=== PATIENT | female | born 1965 | race Caucasian/White ===

== ENCOUNTER 2023-05-16 19:00 | Observation (INO) ==
[2023-05-16 19:47] LABS: Basophils # (auto) 0.04 K/uL (0.00-0.20); Basophils % (auto) 0.7 %; Eosinophils # (auto) 0.21 K/uL (0.00-0.50); Eosinophils % (auto) 3.5 %; Hematocrit (blood only) 41.3 % (37.0-47.0); Hemoglobin 13.8 g/dl (12.0-16.0); Immature Granulocytes # (auto) 0.01 K/uL (0.01-0.20); Immature Granulocytes % (auto) 0.2 %; Lymphocytes # (auto) 2.75 K/uL (1.20-3.40); Lymphocytes % (auto) 46.1 %; Mean Corpuscular Hemoglobin 30.8 pg (25.0-34.0); Mean Corpuscular Hgb Conc 33.4 g/dL (32.0-36.0); Mean Corpuscular Volume 92.2 fL (80.0-100.0); Mean Platelet Volume 9.8 fL (9.4-12.4); Monocytes # (auto) 0.57 K/uL (0.11-0.59); Monocytes % (auto) 9.5 %; Neutrophils # (auto) 2.39 K/uL (1.40-6.50); Platelet Count 235 K/uL (130-400); RDW Coefficient of Variation 12.9 % (11.5-14.5); RDW Standard Deviation 43.3 fL (36.4-46.3); Red Blood Count 4.48 M/uL (4.20-5.40); White Blood Count 5.97 K/ul (4.8-10.8)
[2023-05-16 19:55] LABS: Alanine Aminotransferase 13 U/L (7-52); Albumin Globulin Ratio 1.5 (0.9-2); Albumin Level 4.4 gm/dl (3.4-5.0); Alkaline Phosphatase 79 U/L (34-104); Anion Gap 3 (3-11); Aspartate Aminotransferase 17 U/L (13-39); BUN Creatinine Ratio 14.6 (10-20); Bilirubin,Total 0.3 mg/dl (0.2-1.0); Blood Urea Nitrogen 13 mg/dl (6-23); Calcium 9.7 mg/dl (8.6-10.3); Carbon Dioxide 30 mmol/L (21-32); Chloride 104 mmol/L (98-107); Est GFR (African American) 84.6 ml/min; Glucose 101 mg/dl (70-99(Fasting)); Lipase 35 U/L (11-82); Potassium 4.3 mmol/L (3.5-5.1); Sodium 137 mmol/L (136-145); Total Protein 7.4 gm/dl (6.0-8.3)
[2023-05-16 20:01] LABS: Troponin I High Sensitivity < 2.3 pg/ml (0-14)
[2023-05-16] MEDS ORDERED: clonazePAM 0.5 MG TAB PO STA (22:42)
[2023-05-16] MEDS ORDERED: FAMOTIDINE 20MG IV PUSH 20 MG/5 ML SYR IV STA (22:42)
[2023-05-16 23:00] LABS: Creatine Kinase 69 U/L (26-192)
[2023-05-16] MEDS ORDERED: OPTIRAY 320 500ml IV ONE (23:28)
[2023-05-16 23:34] LABS: Lyme Ab IgG w/WB Rflx Negative (Negative); Lyme Ab IgM w/WB Rflx Negative (Negative)
[2023-05-16 23:45] LABS: Thyroid Stimulating Hormone 3.667 uIu/ml (0.300-4.500)
--- NOTE | 2023-05-17 | CT Scan Report ---
Exam(s): CTA CHEST IV Amt: 109 ML OPTIRAY 320 EXAM: CT Angiography Chest With Intravenous Contrast CLINICAL HISTORY: Reason for exam: PE. TECHNIQUE: Axial computed tomographic angiography images of the chest with intravenous contrast. CTDI is 13.04 mGy and DLP is 388.56 mGy-cm. Automated exposure control was utilized for the study. A dose lowering technique was utilized adhering to the principles of ALARA. MIP reconstructed images were created and reviewed. COMPARISON: No relevant prior studies available. FINDINGS: Pulmonary arteries: Unremarkable. No pulmonary embolism. Aorta: No acute findings. No thoracic aortic aneurysm. Lungs: Unremarkable. No mass. No consolidation. Pleural space: Unremarkable. No significant effusion. No pneumothorax. Heart: Unremarkable. No cardiomegaly. No significant pericardial effusion. No evidence of RV dysfunction. Bones/joints: No acute fracture. No dislocation. Soft tissues: Unremarkable. Lymph nodes: Unremarkable. No enlarged lymph nodes. IMPRESSION: Normal chest CTA. No pulmonary embolism. Electronically signed by: Rodriguez Gonzalez MD 05/16/23 23:59 PM
--- NOTE | 2023-05-17 00:01 | CT Scan Report ---
Exam(s): CT ABDOMEN + PELVIS With Contrast IV Amt: 109 ML OPTIRAY 320 EXAM: CT Abdomen and Pelvis With Intravenous Contrast CLINICAL HISTORY: Reason for exam: mid abd pain. TECHNIQUE: Axial computed tomography images of the abdomen and pelvis with intravenous contrast. CTDI is 13.28 mGy and DLP is 641.5 mGy-cm. Automated exposure control was utilized for the study. A dose lowering technique was utilized adhering to the principles of ALARA. CONTRAST: Patient received 109 ML OPTIRAY 320 of IV contrast COMPARISON: No relevant prior studies available. FINDINGS: Lung bases: Unremarkable. No mass. No consolidation. ABDOMEN: Liver: Unremarkable. No mass. Gallbladder and bile ducts: Unremarkable. No calcified stones. No ductal dilation. Pancreas: Unremarkable. No mass. No ductal dilation. Spleen: Unremarkable. No splenomegaly. Adrenals: Unremarkable. No mass. Kidneys and ureters: Unremarkable. No solid mass. No hydronephrosis. Stomach and bowel: Unremarkable. No acute diverticulitis. No small bowel obstruction. No free intraperitoneal air. PELVIS: Appendix: Normal appendix. Bladder: Wall thickening of the urinary bladder, correlate for mild UTI. Reproductive: Unremarkable as visualized. ABDOMEN and PELVIS: Intraperitoneal space: Unremarkable. No free air. No significant fluid collection. Bones/joints: No acute fracture. No dislocation. Soft tissues: Unremarkable. Vasculature: Unremarkable. No abdominal aortic aneurysm. Lymph nodes: Unremarkable. No enlarged lymph nodes. IMPRESSION: 1. No acute diverticulitis. No small bowel obstruction. No free intraperitoneal air. 2. Normal appendix. 3. Wall thickening of the urinary bladder, correlate for mild UTI. Electronically signed by: Rodriguez Gonzalez MD 05/17/23 00:00 AM
[2023-05-17] MEDS ORDERED: SODIUM CHLORIDE 0.9% 1,000 ML IV ONE (00:19)
[2023-05-17 00:44] LABS: Partial Thromboplastin Time 26.8 Seconds (21.0-31.0)
[2023-05-17 00:50] LABS: Appearance Urine Clear (Clear); Bacteria Urine Automated 1+ (Negative); Bilirubin Urine Negative (Negative); Blood Urine Negative (Negative); Color Urine Yellow; Epithelial Cell Urine Auto 0-5 /lpf (0-5); Glucose Urine UA Negative (Negative); Ketones Urine Negative (Negative); Leukocyte Esterase Urine 2+ (Negative); Nitrite Urine Negative (Negative); Protein Urine Negative (Negative); RBC Urine Automated 0-4 /hpf (0-4); Specific Gravity Urine > 1.045 (1.000-1.030); Urobilinogen Urine Negative (Negative); WBC Urine Automated >30 /hpf (0-5); pH Urine 7.5 (4.5-7.5)
[2023-05-17 01:27] LABS: Magnesium 2.3 mg/dl (1.7-2.4)
[2023-05-17 01:34] LABS: Troponin I High Sensitivity < 2.3 pg/ml (0-14)
--- NOTE | 2023-05-17 03:48 | Emergency Department Note ---
History of Present Illness General Chief complaint: Chest Pain Stated complaint: CHEST PAIN, INDEGESTION Time Seen by Provider: 05/16/23 22:29 History of Present Illness Maximum Pain Intensity: 7 This 57-year-old female presents the ER complaining of intermittent chest pain and epigastric discomfort that is steadily getting worse. Patient saw the family doctor for this already and has a outpatient cardiology appointment next month. Patient states she got more concerned and came in. Patient denies fever, chills, cough, congestion, leg pain or swelling, prior heart disease or blood clots. She states she is healthy with no real active medical problems. Patient states on her walk the other day she began to feel unwell and was concerned and had the return without completing her entire walk. 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 CYCLE" Hx of seasonal allergies CHRONIC CONGESTION; HAS BEEN GETTING INJECTIONS FOR 3 YEARS THRU [facility] Nausea after anesthesia Slow to wake up after anesthesia Surgical History Hx of tubal ligation Hx of wisdom tooth extraction Social History Smoking Status: Never smoker Second Hand Exposure: Yes (HX GROWING UP); Do You Dip or Chew Tobacco: No; Hx Alcohol Use: Yes Hx Substance Use: No Preferred Language: Qatari Communication Ability: Effective Operations Research Manager Required: No Beliefs That Will Affect Care: None Current Living Situation: Spouse Feels Safe at Home: Yes Assistive Devices: None Review of Systems A total of 10 systems reviewed and were otherwise negative Physical Exam Vital Signs Vital Signs - 24 hr 05/16/23 19:09 05/16/23 22:13 05/16/23 22:13 Temperature 36.8 C Temperature Source Temporal Artery Scan Pulse Rate 83 Pulse Rate [Right Finger] 70 Respiratory Rate 18 14 Respiratory Effort / Characteristics Non-Labored Non-Labored Spontaneous Respiratory Depth Normal Normal Respiratory Pattern Blood Pressure 132/88 Blood Pressure [Right Arm] 103/72 Blood Pressure Mean 102 Blood Pressure Mean [Right Arm] 82 Blood Pressure Position [Right Arm] Pulse Oximetry 100 97 97 Oxygen Delivery Method Room Air Room Air Room Air Sepsis Recent Fever Within 48 Hours No Sepsis New/Unexplained Change in Mental Status No Sepsis Action Taken by Nursing No Action Required 05/16/23 22:13 05/16/23 22:22 05/17/23 00:18 Temperature Temperature Source Pulse Rate 70 66 Pulse Rate [Right Finger] 75 Respiratory Rate 14 16 Respiratory Effort / Characteristics Non-Labored Spontaneous Respiratory Depth Normal Respiratory Pattern Blood Pressure Blood Pressure [Right Arm] 110/72 Blood Pressure Mean Blood Pressure Mean [Right Arm] 84 Blood Pressure Position [Right Arm] Pulse Oximetry 97 98 Oxygen Delivery Method Room Air Room Air Sepsis Recent Fever Within 48 Hours Sepsis New/Unexplained Change in Mental Status Sepsis Action Taken by Nursing 05/17/23 02:00 05/17/23 02:13 05/17/23 03:05 Temperature Temperature Source Pulse Rate 60 Pulse Rate [Right Finger] 61 61 Respiratory Rate 12 16 Respiratory Effort / Characteristics Non-Labored Spontaneous Respiratory Depth Normal Respiratory Pattern Regular Blood Pressure Blood Pressure [Right Arm] 85/54 L 99/83 L Blood Pressure Mean Blood Pressure Mean [Right Arm] 64 88 Blood Pressure Position [Right Arm] Lying Pulse Oximetry 96 95 Oxygen Delivery Method Room Air Room Air Sepsis Recent Fever Within 48 Hours Sepsis New/Unexplained Change in Mental Status Sepsis Action Taken by Nursing VITALS: Vitals are noted on the nurse's note and reviewed by myself. Vital signs stable. GENERAL: Pleasant patient with present, in no acute distress, non diaphoretic, well-developed well-nourished. SKIN: The skin was without rashes, erythema, edema, or bruising. There is no tenting of the skin. Capillary reflex less than 2 seconds. HEAD: Normocephalic atraumatic. EARS: External auditory canals clear, EYES: Pupils equal round and reactive to light and accommodation. Conjunctivae without injection, sclerae without icterus. Extraocular movements intact. NOSE: Patent, turbinates without inflammation or discharge. MOUTH: Mucous membranes moist. Pharynx without erythema or exudate. Uvula midline. Airway patent. Tongue does not deviate. NECK: Supple without nuchal rigidity. No lymphadenopathy. No thyromegaly. Cervical spine is nontender. No JVD. HEART: Regular rate and rhythm LUNGS: Clear to auscultation bilaterally without wheezes, rales or rhonchi. No retractions or accessory muscle use. ABDOMEN: Positive bowel sounds x 4. Normal tympanic percussion. Soft, nontender, without masses or organomegaly. Almonte sign negative. No guarding or rebound tenderness. No CVA tenderness MUSCULOSKELETAL: No muscle atrophy, erythema, or edema noted. NEURO: Patient was alert and oriented to person place and time. Normal sen sation to light and sharp touch. No focal neurological deficits. Course Administered Medications Sodium Chloride (Nss) 1,000 mls @ 75 mls/hr IV .[id number] ONE Stop: 05/17/23 13:38 Last Admin: 05/17/23 00:33 Dose: 75 mls/hr Documented By: AMARILIS Discontinued Medications Clonazepam (Clonazepam 0.5 Mg Tab) 0.5 mg PO NOW STA Stop: 05/16/23 22:43 Last Admin: 05/16/23 22:52 Dose: 0.5 mg Documented By: BELA Famotidine (Pepcid 20mg Iv Push) 20 mg in 5 mls @ 2.5 mls/min IV NOW STA Stop: 05/16/23 22:43 Last Admin: 05/16/23 22:52 Dose: 2.5 mls/min Documented By: BELA Ioversol (Optiray 320 500ml) 125 ml IV ONCE ONE Stop: 05/16/23 23:29 Last Admin: 05/16/23 23:28 Dose: 109 ml Documented By: JOSIE Medical Decision Making Medical Records Attestation: I reviewed the patient's medical records. Home Medications Current Medication List: was personally reviewed by me Laboratory Data Attestation: I reviewed the patient's lab results. 05/16/23 19:20 05/16/23 19:20 Lab Results 05/16/23 05/16/23 05/16/23 Range/Units 19:20 19:20 19:20 WBC 5.97 (4.8-10.8) K/ul RBC 4.48 (4.20-5.40) M/uL Hgb 13.8 (12.0-16.0) g/dl Hct 41.3 (37.0-47.0) % MCV 92.2 (80.0-100.0) fL MCH 30.8 (25.0-34.0) pg MCHC 33.4 (32.0-36.0) g/dL RDW Std Deviation 43.3 (36.4-46.3) fL RDW Coeff of Yakov 12.9 (11.5-14.5) % Plt Count 235 (130-400) K/uL MPV 9.8 (9.4-12.4) fL Immature Gran % (Auto) 0.2 % Neut % (Auto) 40.0 % Lymph % (Auto) 46.1 % Boyle % (Auto) 9.5 % Eos % (Auto) 3.5 % Baso % (Auto) 0.7 % Neut # (Auto) 2.39 (1.40-6.50) K/uL Lymph # (Auto) 2.75 (1.20-3.40) K/uL Boyle # (Auto) 0.57 (0.11-0.59) K/uL Eos # (Auto) 0.21 (0.00-0.50) K/uL Baso # (Auto) 0.04 (0.00-0.20) K/uL Immature Gran # (Auto) 0.01 (0.01-0.20) K/uL APTT (21.0-31.0) Seconds PTT Ratio Sodium 137 (136-145) mmol/L Potassium 4.3 (3.5-5.1) mmol/L Chloride 104 (98-107) mmol/L Carbon Dioxide 30 (21-32) mmol/L Anion Gap 3 (3-11) BUN 13 (6-23) mg/dl Creatinine 0.89 (0.6-1.2) mg/dl Est Cr Clr Drug Dosing Not Reportable Est GFR ( Amer) 84.6 ml/min Est GFR (Non-Af Amer) 73.0 ml/min BUN/Creatinine Ratio 14.6 (10-20) Glucose 101 H (70-99(Fasting)) mg/dl Calcium 9.7 (8.6-10.3) mg/dl Magnesium (1.7-2.4) mg/dl Total Bilirubin 0.3 (0.2-1.0) mg/dl AST 17 (13-39) U/L ALT 13 (7-52) U/L Alkaline Phosphatase 79 (34-104) U/L Total Creatine Kinase 69 (26-192) U/L Troponin I High Sens < 2.3 (0-14) pg/ml Total Protein 7.4 (6.0-8.3) gm/dl Albumin 4.4 (3.4-5.0) gm/dl Globulin 3.0 (2.5-4.0) gm/dl Albumin/Globulin Ratio 1.5 (0.9-2) Lipase 35 (11-82) U/L TSH 3.667 (0.300-4.500) uIu/ml Urine Color Urine Appearance (Clear) Urine pH (4.5-7.5) Ur Specific [place] (1.000-1.030) Urine Protein (Negative) Urine Glucose (UA) (Negative) Urine Ketones (Negative) Urine Blood (Negative) Urine Nitrite (Negative) Urine Bilirubin (Negative) Urine Urobilinogen (Negative) Ur Leukocyte Esterase (Negative) Urine WBC (Auto) (0-5) /hpf Urine RBC (Auto) (0-4) /hpf U Hyaline Cast (Auto) (0-5) /lpf U Epithel Cells (Auto) (0-5) /lpf Urine Bacteria (Auto) (Negative) Lyme Disease IgG Ab Negative (Negative) Lyme Disease IgM Ab Negative (Negative) 05/16/23 05/17/23 05/17/23 Range/Units 19:20 00:35 01:00 WBC (4.8-10.8) K/ul RBC (4.20-5.40) M/uL Hgb (12.0-16.0) g/dl Hct (37.0-47.0) % MCV (80.0-100.0) fL MCH (25.0-34.0) pg MCHC (32.0-36.0) g/dL RDW Std Deviation (36.4-46.3) fL RDW Coeff of Yakov (11.5-14.5) % Plt Count (130-400) K/uL MPV (9.4-12.4) fL Immature Gran % (Auto) % Neut % (Auto) % Lymph % (Auto) % Boyle % (Auto) % Eos % (Auto) % Baso % (Auto) % Neut # (Auto) (1.40-6.50) K/uL Lymph # (Auto) (1.20-3.40) K/uL Boyle # (Auto) (0.11-0.59) K/uL Eos # (Auto) (0.00-0.50) K/uL Baso # (Auto) (0.00-0.20) K/uL Immature Gran # (Auto) (0.01-0.20) K/uL APTT 26.8 (21.0-31.0) Seconds PTT Ratio 1.0 Sodium (136-145) mmol/L Potassium (3.5-5.1) mmol/L Chloride (98-107) mmol/L Carbon Dioxide (21-32) mmol/L Anion Gap (3-11) BUN (6-23) mg/dl Creatinine (0.6-1.2) mg/dl Est Cr Clr Drug Dosing Est GFR ( Amer) ml/min Est GFR (Non-Af Amer) ml/min BUN/Creatinine Ratio (10-20) Glucose (70-99(Fasting)) mg/dl Calcium (8.6-10.3) mg/dl Magnesium 2.3 (1.7-2.4) mg/dl Total Bilirubin (0.2-1.0) mg/dl AST (13-39) U/L ALT (7-52) U/L Alkaline Phosphatase (34-104) U/L Total Creatine Kinase (26-192) U/L Troponin I High Sens < 2.3 (0-14) pg/ml Total Protein (6.0-8.3) gm/dl Albumin (3.4-5.0) gm/dl Globulin (2.5-4.0) gm/dl Albumin/Globulin Ratio (0.9-2) Lipase (11-82) U/L TSH (0.300-4.500) uIu/ml Urine Color Yellow Urine Appearance Clear (Clear) Urine pH 7.5 (4.5-7.5) Ur Specific [place] > 1.045 H (1.000-1.030) Urine Protein Negative (Negative) Urine Glucose (UA) Negative (Negative) Urine Ketones Negative (Negative) Urine Blood Negative (Negative) Urine Nitrite Negative (Negative) Urine Bilirubin Negative (Negative) Urine Urobilinogen Negative (Negative) Ur Leukocyte Esterase 2+ H (Negative) Urine WBC (Auto) >30 H (0-5) /hpf Urine RBC (Auto) 0-4 (0-4) /hpf U Hyaline Cast (Auto) 1-5 (0-5) /lpf U Epithel Cells (Auto) 0-5 (0-5) /lpf Urine Bacteria (Auto) 1+ H (Negative) Lyme Disease IgG Ab (Negative) Lyme Disease IgM Ab (Negative) Imaging Data Attestation: I personally reviewed and interpreted this imaging study as follows: Radiologist's Impression: Abdomen/Pelvis CT 05/16/23 22:42 Exam(s): CT ABDOMEN + PELVIS With Contrast IV Amt: 109 ML OPTIRAY 320 EXAM: CT Abdomen and Pelvis With Intravenous Contrast CLINICAL HISTORY: Reason for exam: mid abd pain. TECHNIQUE: Axial computed tomography images of the abdomen and pelvis with intravenous contrast. CTDI is 13.28 mGy and DLP is 641.5 mGy-cm. Automated exposure control was utilized for the study. A dose lowering technique was utilized adhering to the principles of ALARA. CONTRAST: Patient received 109 ML OPTIRAY 320 of IV contrast COMPARISON: No relevant prior studies available. FINDINGS: Lung bases: Unremarkable. No mass. No consolidation. ABDOMEN: Liver: Unremarkable. No mass. Gallbladder and bile ducts: Unremarkable. No calcified stones. No ductal dilation. Pancreas: Unremarkable. No mass. No ductal dilation. Spleen: Unremarkable. No splenomegaly. Adrenals: Unremarkable. No mass. Kidneys and ureters: Unremarkable. No solid mass. No hydronephrosis. Stomach and bowel: Unremarkable. No acute diverticulitis. No small bowel obstruction. No free intraperitoneal air. PELVIS: Appendix: Normal appendix. Bladder: Wall thickening of the urinary bladder, correlate for mild UTI. Reproductive: Unremarkable as visualized. ABDOMEN and PELVIS: Intraperitoneal space: Unremarkable. No free air. No significant fluid collection. Bones/joints: No acute fracture. No dislocation. Soft tissues: Unremarkable. Vasculature: Unremarkable. No abdominal aortic aneurysm. Lymph nodes: Unremarkable. No enlarged lymph nodes. IMPRESSION: 1. No acute diverticulitis. No small bowel obstruction. No free intraperitoneal air. 2. Normal appendix. 3. Wall thickening of the urinary bladder, correlate for mild UTI. Electronically signed by: Rodriguez Gonzalez MD 05/17/23 00:00 AM Chest CTA 05/16/23 22:42 Exam(s): CTA CHEST IV Amt: 109 ML OPTIRAY 320 EXAM: CT Angiography Chest With Intravenous Contrast CLINICAL HISTORY: Reason for exam: PE. TECHNIQUE: Axial computed tomographic angiography images of the chest with intravenous contrast. CTDI is 13.04 mGy and DLP is 388.56 mGy-cm. Automated exposure control was utilized for the study. A dose lowering technique was utilized adhering to the principles of ALARA. MIP reconstructed images were created and reviewed. COMPARISON: No relevant prior studies available. FINDINGS: Pulmonary arteries: Unremarkable. No pulmonary embolism. Aorta: No acute findings. No thoracic aortic aneurysm. Lungs: Unremarkable. No mass. No consolidation. Pleural space: Unremarkable. No significant effusion. No pneumothorax. Heart: Unremarkable. No cardiomegaly. No significant pericardial effusion. No evidence of RV dysfunction. Bones/joints: No acute fracture. No dislocation. Soft tissues: Unremarkable. Lymph nodes: Unremarkable. No enlarged lymph nodes. IMPRESSION: Normal chest CTA. No pulmonary embolism. Electronically signed by: Rodriguez Gonzalez MD 05/16/23 23:[address] [facility] Narrative Prior records/ancillary studies reviewed. Triage Nursing notes reviewed. Additional history obtained from family. The patient's history was concerning for chest pain. Differential diagnosis: Etiologies such as cardiac ischemia, aortic dissection, pulmonary embolism, pneumonia, pneumothorax, musculoskeletal, infections, pericarditis, myocarditis, esophageal rupture, gastrointestinal, as well as others were entertained. Physical examination: As above. ER treatment provided: An order was placed for continuous cardiac monitoring. The monitor shows a rate of 60-100 with a sinus rhythm per my interpretation. IV fluids and clonazepam were ordered On reassessment the patient felt better. Diagnostic interpretation by me: The electrocardiogram was negative for pathologic change. Ordered for chest pain Normal sinus, normal intervals, no acute ST-T wave changes. Impression normal sinus rhythm independently interpreted by myself I think arrhythmia is unlikely. EKG shows normal sinus rhythm with no interval abnormalities such as QT prolongation or WPW. There are no findings to suggest Brugada syndrome. Cardiac monitoring in the emergency department reveals no tachycardic or bradycardic dysrhythmia. Hypertrophic cardiomyopathy was conside red but there are no clear historical elements pointing toward this. EKG is not suggestive. The QRS voltage is not extremely large and there are no suggestive Q waves. The labs Independently Interpreted by myself revealed 2 negative troponins. Urine concerning for infection sent for culture. No prior urine culture for review Imaging studies: Chest x-ray with no acute consolidation, pneumothorax or free air per my independent interpretation CT of the chest abdomen pelvis was reviewed by myself and read by radiology as above. HEART SCORE: Hx: high/mod/low suspicion: 0 ECG: ST depression/nonspecific changes/normal: 0 Age: Greater than 65/45-64/less than 45: 1 Risk factors: (Hypertension, hyperlipidemia, diabetes, coronary disease, tobacco use, cocaine use): 0 Troponin: Greater than 2 times normal limits/1-2 times normal limits/normal: 0 Total: 1 Consultation: A consultation was placed with the hospitalist. The case was discussed and diagnostics were reviewed. The patient was evaluated in the ER for further treatment. Exam and history seem consistent with chest pain with unclear etiology. 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 I felt this is reasonable. Her symptoms have been getting worse. She negative troponins. Nonischemic EKG. Urine concerning for infection sent for culture. She started on antibiotics. Medicine was consulted and the case was discussed. She will be admitted to the medical service for further evaluation and work-up. By the evaluation outlined above emergent etiologies such as aortic dissection, pulmonary embolism, pneumonia, pneumothorax, pericarditis, myocarditis, gastrointestinal, as well as others were deemed relatively unlikely. The pt informed about the findings as listed above. All questions were answered and pleased with the treatment. The chart was completed utilizing [employer] voice recognition software. Grammatical errors, random word insertions, pronoun errors, and incomplete sentences are an occassional consequence of this system due to software limitations, ambient noise, and hardware issues. Any formal questions or concerns about the content, text, or information contained within the body of this dictation should be directly addressed to the physician medical receptionist assistant for clarification. Impression & Plan Acute chest pain, Acute epigastric pain, Acute UTI Discharge Plan Visit Data Chief Complaint: Chest Pain Stated Complaint: CHEST PAIN, INDEGESTION ED Provider: Gibson Sarkar ED Midlevel Provider: Lu Odonnell Discharge Problem: Acute chest pain, Acute epigastric pain, Acute UTI Patient Disposition: Admitted As Inpatient Condition: Good Forms Stand Alone Forms: [facility] [employer] Prescriptions Prescriptions: No Action clonazepam [Klonopin] 0.5 mg Tablet 0.5 mg PO HS PRN (Reason: Anxiety) Rx Instructions: administer 30 minutes before bedtime sumatriptan succinate 1 dose PO UD PRN (Reason: migraines) Patient Comments: pt unsure of dose Referrals Referrals: Carlos Olsen MD [Primary Care Provider] -
[2023-05-17] MEDS ORDERED: cefTRIAXone SODIUM 1,000 MG/50 ML BAG IV STA (03:53)
--- NOTE | 2023-05-17 04:49 | History & Physical Report ---
Date of Service May 17, 2023 Assessment & Plan (1) Atypical chest pain: Plan: Possibly secondary to uncontrolled GERD given response to IV Pepcid Anxiety contributory Rule out ACS hx fibromyalgia prediabetes, hemoglobin A1c of 5.7 November 13 complicated UTI, no sepsis for now OBS PCU Exercise stress echo in a.m. Increase PPI dose to twice daily dosing on discharge Anxiolytic as needed Outpatient Keflex course for UTI DVT prophylaxis per Lovenox subcu Full code Text document was generated using [employer] voice recognition software. It may contain grammatical or spelling errors. Kindly contact undersigned for clarification of any documentation item in question. History of Present Illness Chief Complaint: Chest pain Primary Care Provider: Carlos Olsen MD History obtained from patient and records. Medical history significant for anxiety, fibromyalgia, prediabetes. 2 months history of substernal discomfort with occasional radiation to the back. Intermittent symptoms. Symptoms not exertional and not related to food as per patient. Usual stress at home. No improvement with daily PPI prescribed by PCP. Outpatient stress test contemplated. Symptoms more intense the last week. Patient also noted increased urinary frequency without fever, chills. No hematuria. At the ER, some improvement after IV Pepcid administration at the ER. IV ceftriaxone administered at the ER for UTI. Patient requesting to stay to have a stress test to make sure her heart is okay. 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 Allergies Allergy/AdvReac Type Severity Reaction Status Date / Time Penicillins Allergy Rash Verified 05/17/23 00:27 Home Medications Medication Instructions Recorded Confirmed Type clonazepam 0.5 mg tablet (Klonopin) 0.5 mg PO HS PRN Anxiety 10/31/22 05/17/23 History sumatriptan succinate 1 dose PO UD PRN migraines 10/31/22 05/17/23 History cefdinir 300 mg capsule 300 mg PO BID #8 caps 05/17/23 Rx pantoprazole 40 mg tablet,delayed 40 mg PO BID #60 tabs 05/17/23 Rx release Past Med/Surg History Medical History Anxiety Eczema History of COVID-19 2019, [facility] FOR , PT NOT TESTED BUT HAD SAME SYMPTOMS ; HIGH FEVER, SOB-TOOK 1 MONTH FOR RECOVERY>RESOLVED Hx of migraines "NOT MANY NOW, MAINLY WHEN SHE WAS HAVING MENTRUAL CYCLE" Hx of seasonal allergies CHRONIC CONGESTION; HAS BEEN GETTING INJECTIONS FOR 3 YEARS [facility]RU [facility] Nausea after anesthesia Slow to wake up after anesthesia Surgical History Hx of tubal ligation Hx of wisdom tooth extraction Social History Smoking Status: Never smoker Second Hand Exposure: Yes (HX GROWING UP); Do You Dip or Chew Tobacco: No; Hx Alcohol Use: Yes Hx Substance Use: No Preferred Language: Arabic Communication Ability: Effective Chief Ultrasound Technologist Required: No Beliefs That Will Affect Care: None Current Living Situation: Spouse Feels Safe at Home: Yes Assistive Devices: None Review of Systems Review of Systems: As per HPI, all other systems reviewed and negative Physical Exam Physical Exam: GENERAL: Comfortable, slightly anxious, no respiratory distress SKIN: Normal color, warm HEENT: [place] palpebral conjunctivae, no ptosis, dry buccal mucosa NECK : Supple, no tenderness CHEST : CTA, no tenderness HEART : RRR, no obvious murmurs ABDOMEN: Some distention, nontender EXTREMITIES : No LE swelling/tenderness, no other conspicuous deformities noted NEUROLOGIC : Coherent, no facial asymmetry, no other gross focality Results & Data Results & Data Vital Signs (Past 12 Hours) Vital Signs Temp Pulse Pulse Resp BP BP Pulse Ox 05/17/23 03:05 61 16 99/83 L 95 05/17/23 02:13 60 05/17/23 02:00 61 12 85/54 L 96 05/17/23 00:18 75 16 110/72 98 05/16/23 22:22 66 05/16/23 22:13 70 14 97 05/16/23 22:13 70 14 103/72 97 05/16/23 22:13 97 05/16/23 19:09 36.8 C 83 18 132/88 100 O2 Del Method 05/17/23 03:05 Room Air 05/17/23 02:13 05/17/23 02:00 Room Air 05/17/23 00:18 Room Air 05/16/23 22:22 05/16/23 22:13 Room Air 05/16/23 22:13 Room Air 05/16/23 22:13 Room Air 05/16/23 19:09 Room Air Laboratory Results Laboratory Results WBC 5.97 K/ul (4.8-10.8) 05/16/23 19:20 RBC 4.48 M/uL (4.20-5.40) 05/16/23 19:20 Hgb 13.8 g/dl (12.0-16.0) 05/16/23 19:20 Hct 41.3 % (37.0-47.0) 05/16/23 19:20 MCV 92.2 fL (80.0-100.0) 05/16/23 19:20 MCH 30.8 pg (25.0-34.0) 05/16/23 19:20 MCHC 33.4 g/dL (32.0-36.0) 05/16/23 19:20 RDW Std Deviation 43.3 fL (36.4-46.3) 05/16/23 19:20 RDW Coeff of Yakov 12.9 % (11.5-14.5) 05/16/23 19:20 Plt Count 235 K/uL (130-400) 05/16/23 19:20 MPV 9.8 fL (9.4-12.4) 05/16/23 19:20 Immature Gran % (Auto) 0.2 % 05/16/23 19:20 Neut % (Auto) 40.0 % 05/16/23 19:20 Lymph % (Auto) 46.1 % 05/16/23 19:20 [place] % (Auto) 9.5 % 05/16/23 19:20 Eos % (Auto) 3.5 % 05/16/23 19:20 Baso % (Auto) 0.7 % 05/16/23 19:20 Neut # (Auto) 2.39 K/uL (1.40-6.50) 05/16/23 19:20 Lymph # (Auto) 2.75 K/uL (1.20-3.40) 05/16/23 19:20 [place] # (Auto) 0.57 K/uL (0.11-0.59) 05/16/23 19:20 Eos # (Auto) 0.21 K/uL (0.00-0.50) 05/16/23 19:20 Baso # (Auto) 0.04 K/uL (0.00-0.20) 05/16/23 19:20 Immature Gran # (Auto) 0.01 K/uL (0.01-0.20) 05/16/23 19:20 APTT 26.8 Seconds (21.0-31.0) 05/16/23 19:20 PTT Ratio 1.0 05/16/23 19:20 Sodium 137 mmol/L (136-145) 05/16/23 19:20 Potassium 4.3 mmol/L (3.5-5.1) 05/16/23 19:20 Chloride 104 mmol/L (98-107) 05/16/23 19:20 Carbon Dioxide 30 mmol/L (21-32) 05/16/23 19:20 Anion Gap 3 (3-11) 05/16/23 19:20 BUN 13 mg/dl (6-23) 05/16/23 19:20 Creatinine 0.89 mg/dl (0.6-1.2) 05/16/23 19:20 Est Cr Clr Drug Dosing Not Reportable 05/16/23 19:20 Est GFR ( Amer) 84.6 ml/min 05/16/23 19:20 Est GFR (Non-Af Amer) 73.0 ml/min 05/16/23 19:20 BUN/Creatinine Ratio 14.6 (10-20) 05/16/23 19:20 Glucose 101 mg/dl (70-99(Fasting)) H 05/16/23 19:20 Calcium 9.7 mg/dl (8.6-10.3) 05/16/23 19:20 Magnesium 2.3 mg/dl (1.7-2.4) 05/17/23 01:00 Total Bilirubin 0.3 mg/dl (0.2-1.0) 05/16/23 19:20 AST 17 U/L (13-39) 05/16/23 19:20 ALT 13 U/L (7-52) 05/16/23 19:20 Alkaline Phosphatase 79 U/L (34-104) 05/16/23 19:20 Total Creatine Kinase 69 U/L (26-192) 05/16/23 19:20 Troponin I High Sens < 2.3 pg/ml (0-14) 05/17/23 01:00 Total Protein 7.4 gm/dl (6.0-8.3) 05/16/23 19:20 Albumin 4.4 gm/dl (3.4-5.0) 05/16/23 19:20 Globulin 3.0 gm/dl (2.5-4.0) 05/16/23 19:20 Albumin/Globulin Ratio 1.5 (0.9-2) 05/16/23 19:20 Lipase 35 U/L (11-82) 05/16/23 19:20 TSH 3.667 uIu/ml (0.300-4.500) 05/16/23 19:20 Urine Color Yellow 05/17/23 00:35 Urine Appearance Clear (Clear) 05/17/23 00:35 Urine pH 7.5 (4.5-7.5) 05/17/23 00:35 Ur Specific [place] > 1.045 (1.000-1.030) H 05/17/23 00:35 Urine Protein Negative (Negative) 05/17/23 00:35 Urine Glucose (UA) Negative (Negative) 05/17/23 00:35 Urine Ketones Negative (Negative) 05/17/23 00:35 Urine Blood Negative (Negative) 05/17/23 00:35 Urine Nitrite Negative (Negative) 05/17/23 00:35 Urine Bilirubin Negative (Negative) 05/17/23 00:35 Urine Urobilinogen Negative (Negative) 05/17/23 00:35 Ur Leukocyte Esterase 2+ (Negative) H 05/17/23 00:35 Urine WBC (Auto) >30 /hpf (0-5) H 05/17/23 00:35 Urine RBC (Auto) 0-4 /hpf (0-4) 05/17/23 00:35 U Hyaline Cast (Auto) 1-5 /lpf (0-5) 05/17/23 00:35 U Epithel Cells (Auto) 0-5 /lpf (0-5) 05/17/23 00:35 Urine Bacteria (Auto) 1+ (Negative) H 05/17/23 00:35 Lyme Disease IgG Ab Negative (Negative) 10/24/23 19:20 Lyme Disease IgM Ab Negative (Negative) 05/16/23 19:20 Impressions Abdomen/Pelvis CT 05/16/23 22:42 Exam(s): CT ABDOMEN + PELVIS With Contrast IV Amt: 109 ML OPTIRAY 320 EXAM: CT Abdomen and Pelvis With Intravenous Contrast CLINICAL HISTORY: Reason for exam: mid abd pain. TECHNIQUE: Axial computed tomography images of the abdomen and pelvis with intravenous contrast. CTDI is 13.28 mGy and DLP is 641.5 mGy-cm. Automated exposure control was utilized for the study. A dose lowering technique was utilized adhering to the principles of ALARA. CONTRAST: Patient received 109 ML OPTIRAY 320 of IV contrast COMPARISON: No relevant prior studies available. FINDINGS: Lung bases: Unremarkable. No mass. No consolidation. ABDOMEN: Liver: Unremarkable. No mass. Gallbladder and bile ducts: Unremarkable. No calcified stones. No ductal dilation. Pancreas: Unremarkable. No mass. No ductal dilation. Spleen: Unremarkable. No splenomegaly. Adrenals: Unremarkable. No mass. Kidneys and ureters: Unremarkable. No solid mass. No hydronephrosis. Stomach and bowel: Unremarkable. No acute diverticulitis. No small bowel obstruction. No free intraperitoneal air. PELVIS: Appendix: Normal appendix. Bladder: Wall thickening of the urinary bladder, correlate for mild UTI. Reproductive: Unremarkable as visualized. ABDOMEN and PELVIS: Intraperitoneal space: Unremarkable. No free air. No significant fluid collection. Bones/joints: No acute fracture. No dislocation. Soft tissues: Unremarkable. Vasculature: Unremarkable. No abdominal aortic aneurysm. Lymph nodes: Unremarkable. No enlarged lymph nodes. IMPRESSION: 1. No acute diverticulitis. No small bowel obstruction. No free intraperitoneal air. 2. Normal appendix. 3. Wall thickening of the urinary bladder, correlate for mild UTI. Electronically signed by: Rodriguez Gonzalez MD 05/17/23 00:00 AM Chest CTA 05/16/23 22:42 Exam(s): CTA CHEST IV Amt: 109 ML OPTIRAY 320 EXAM: CT Angiography Chest With Intravenous Contrast CLINICAL HISTORY: Reason for exam: PE. TECHNIQUE: Axial computed tomographic angiography images of the chest with intravenous contrast. CTDI is 13.04 mGy and DLP is 388.56 mGy-cm. Automated exposure control was utilized for the study. A dose lowering technique was utilized adhering to the principles of ALARA. MIP reconstructed images were created and reviewed. COMPARISON: No relevant prior studies available. FINDINGS: Pulmonary arteries: Unremarkable. No pulmonary embolism. Aorta: No acute findings. No thoracic aortic aneurysm. Lungs: Unremarkable. No mass. No consolidation. Pleural space: Unremarkable. No significant effusion. No pneumothorax. Heart: Unremarkable. No cardiomegaly. No significant pericardial effusion. No evidence of RV dysfunction. Bones/joints: No acute fracture. No dislocation. Soft tissues: Unremarkable. Lymph nodes: Unremarkable. No enlarged lymph nodes. IMPRESSION: Normal chest CTA. No pulmonary embolism. Electronically signed by: Rodriguez Gonzalez MD 05/16/23 23:59 PM Diagnostic Findings EKG as per my interpretation :Rate 75, NSR, normal axis, T wave abnormality septal leads
[2023-05-17] MEDS ORDERED: PROMETHAZINE HCL 6.25 MG in SODIUM CHLORIDE 0.9% 50 ML IV PRN (04:51)
[2023-05-17] MEDS ORDERED: NITROGLYCERIN SL 0.4 MG/TAB TAB SL PRN (04:51)
[2023-05-17] MEDS ORDERED: traMADol HCL 50 MG TABLET PO PRN (04:53)
[2023-05-17] MEDS ORDERED: CIPROFLOXACIN 500 MG TAB PO SCH (05:00)
[2023-05-17] MEDS ORDERED: clonazePAM 0.5 MG TAB PO PRN (07:48)
--- NOTE | 2023-05-17 08:09 | XRay Report ---
XR chest 1V portable CLINICAL HISTORY: Chest pain, nonspecific TECHNIQUE: Single frontal radiograph of the chest was obtained. Comparison: None available at the time of this dictation. FINDINGS: No lines and tubes are seen. The cardiomediastinal silhouette is normal. The lungs are clear. No evid ence of pleural effusion or pneumothorax. IMPRESSION: No acute chest disease. ACT 112: Negative or not required by law. Electronically signed by: Alexy Mas M.D. 05/17/2023 8:07 AM
[2023-05-17] MEDS ORDERED: PANTOprazole 40 MG TAB PO SCH (09:00)
--- NOTE | 2023-05-17 11:12 | Communication Note ---
Date of Service: May 17, 2023 Preliminary report for exercise stress echocardiogram performed 05/17/2023: The stress echocardiogram is negative for ischemia. The heart response to exercise was normal. The blood pressure response to exercise was normal. No symptoms suggestive of angina were reported. Trace to mild tricuspid regurgitation is present. Doppler findings do not suggest pulmonary hypertension. -Recommend ongoing risk factor modification. Stress Parameters The baseline EKG reveals sinus rhythm. The ST segments are normal on the resting EKG. The stress EKG response is negative for ischemia. Occasional PVCs were noted on the stress EKG. Left Ventricle The left ventricle is normal in size. There is normal left ventricular wall thickness. Resting wall motion: Normal. Stress wall motion: Appropriate increase in Left ventricular systolic function and decrease in cav ity size. No stress induced segmental wall motion abnormalities. Left ventricular systolic function is normal. Ejection Fraction = 55-60%. Right Ventricle The right ventricle is normal in size and function. Atria The left atrial size is normal. Right atrial size is normal. There is no evidence of atrial septal defect, but resolution does not allow assessment for a patent foramen ovale. Aortic Valve The aortic valve is trileaflet. No aortic regurgitation is present. Mitral Valve The mitral valve is normal. There is trace mitral regurgitation. There is no mitral valve stenosis. Tricuspid Valve The tricuspid valve is normal. Trace to mild tricuspid regurgitation is present. Doppler findings do not suggest pulmonary hypertension. There is no tricuspid stenosis. Pulmonic Valve The pulmonic valve is not well visualized. Pericardium There is no pericardial effusion. Great Vessels The aortic root is normal size.
--- NOTE | 2023-05-17 12:57 | Gastrointestinal Consultation ---
Date of Consultation May 17, 2023 Assessment & Plan (1) Atypical chest pain: Pt is a 57 yo female w atypical chest pain symptoms, negative cardiac workup so far. Hx of reflux and has mild dysphagia. DDX: esophagitis from GERD, esophageal dysmotility/spasm, esopahgeal stenosis/stricture, fibromyalgia pain - Protonix 40mg BID coverage. May consider adding Carafate 1g BID if having esophageal pain/burning - Soft diet - Will arrange OP EGD eval - Avoid NSAIDs, ETOH - Pls recall GI prn Supervising Physician Co-Signing Physician Notes Patient was seen and examined with ARACELI Mace whose note reflects our findings and plan. BID PPI and will arrange outpatient EGD History of Present Illness Reason for Consultation: Evaluate for possible esophagitis Requesting Physician: Dr. Ho Suarez Attending Physician: Dr. Cintia Menjivar History of Present Illness Pt is a 57 yo female who presented to ED w c/o chest pain. She reports symptoms started around Labor day and appears intermittently - sometimes associated with physical activity, other times when she's sitting. Pain described as "someone pressing from front and back" on her chest. Pain may radiate to lateral chest wall. She has had bilateral numbness on hands. Denies associated light headedness, dizziness, diaphoresis. She does experience mild trouble swallowing foods and acid reflux at times. Took Omeprazole and OTC Nexium before without significant relief. Labs reviewed - troponin, CK, EKG all normal. Cardiac stress test negative. Denies tobacco, ETOH, NSAIDs though had been prescribed Naproxen for fibromyalgia before. No family hx of heart disease Allergies Allergy/AdvReac Type Severity Reaction Status Date / Time Penicillins Allergy Rash Verified 05/17/23 00:27 Home Medications Medication Instructions Recorded Confirmed Type clonazepam 0.5 mg tablet (Klonopin) 0.5 mg PO HS PRN Anxiety 10/31/22 05/17/23 History sumatriptan succinate 1 dose PO UD PRN migraines 10/31/22 05/17/23 History cefdinir 300 mg capsule 300 mg PO BID #8 caps 05/17/23 Rx pantoprazole 40 mg tablet,delayed 40 mg PO BID #60 tabs 05/17/23 Rx release Patient History Medical History Anxiety Eczema History of COVID-19 2019, [facility] FOR , PT NOT TESTED BUT HAD SAME SYMPTOMS ; HIGH FEVER, SOB-TOOK 1 MONTH FOR RECOVERY>RESOLVED Hx of migraines "NOT MANY NOW, MAINLY WHEN SHE WAS HAVING MENTRUAL CYCLE" Hx of seasonal allergies CHRONIC CONGESTION; HAS BEEN GETTING INJECTIONS FOR 3 YEARS [facility]RU [facility] Nausea after anesthesia Slow to wake up after anesthesia Surgical History Hx of tubal ligation Hx of wisdom tooth extraction Social History Smoking Status: Never smoker Second Hand Exposure: Yes (HX GROWING UP); Do You Dip or Chew Tobacco: No; Hx Alcohol Use: Yes Hx Substance Use: No Preferred Language: Occitan Communication Ability: Effective Filters Assembler Required: No Beliefs That Will Affect Care: None Current Living Situation: Spouse Feels Safe at Home: Yes Assistive Devices: None Review of Systems Review of Systems: All systems reviewed & are unremarkable except as noted in HPI & below Constitutional: as per Subjective / HPI Physical Exam Constitutional: WD/WN, vitals as above well groomed, cooperative and comfortable Eyes: PERRL, conjunctivae normal, anicteric sclerae ENMT: external ear and nose normal, oropharynx normal Respiratory: normal respiratory effort, lungs clear to auscultation Cardiovascular: RRR, no murmur, no edema Gastrointestinal (Abdomen): normal bowel sounds, soft, nontender, no hepatosplenomegaly Skin: no rashes, warm and dry no jaundice Psychiatric: A+Ox3, euthymic affect Lymphatic: no lymphedema Results & Data Vital Signs (Past 12 Hours) Vital Signs Pulse Pulse Resp BP BP Pulse Ox O2 Del Method 05/17/23 12:09 70 16 92/73 L 97 Room Air 05/17/23 07:00 58 L 13 108/71 97 Room Air 05/17/23 06:19 59 L 16 97 05/17/23 06:19 95/53 L 05/17/23 06:10 63 11 L 05/17/23 06:00 59 L 15 05/17/23 05:50 66 13 05/17/23 05:40 63 12 05/17/23 05:30 62 18 05/17/23 05:28 57 L 13 05/17/23 04:50 65 15 97 05/17/23 04:40 76 15 98 05/17/23 04:30 80 21 98 05/17/23 04:20 56 L 13 97 05/17/23 04:10 66 21 97 05/17/23 04:08 70 13 97 05/17/23 04:08 99/60 L 05/17/23 04:00 56 L 10 L 98 05/17/23 04:00 80/55 L 05/17/23 03:50 65 14 99 05/17/23 03:40 61 15 96 05/17/23 03:31 104/79 05/17/23 03:31 62 13 98 05/17/23 03:30 80 15 96 05/17/23 03:20 64 12 95 05/17/23 03:10 61 12 95 05/17/23 03:01 57 L 14 96 05/17/23 03:01 99/83 L 05/17/23 03:00 64 16 97 05/17/23 02:50 60 13 96 05/17/23 02:40 63 13 96 05/17/23 02:30 57 L 17 99 05/17/23 02:30 95/55 L 05/17/23 02:24 100/60 05/17/23 06:19 60 16 95/53 L 96 Room Air 05/17/23 06:11 61 05/17/23 04:08 63 18 99/60 L 97 Room Air 05/17/23 03:05 61 16 99/83 L 95 Room Air 05/17/23 02:13 60 05/17/23 02:00 61 12 85/54 L 96 Room Air
--- NOTE | 2023-05-17 13:16 | Hospitalist Progress Note ---
Date of Service May 17, 2023 Assessment & Plan (1) Atypical chest pain: Plan: Atypical chest pain Likely due to GERD DD: Esophagitis, esophageal dysmotility/stricture --CTA:Normal chest CTA. No pulmonary embolism. -- Exercise stress: Negative for ischemia. Mild tricuspid regurgitation present. -- EKG showed no signs of acute ischemia Cardiac enzymes negative Appreciate GI input Started on Protonix 40 mg twice a day Needs outpatient endoscopy GI soft diet for now Needs follow-up with GI upon discharge Abnormal urinalysis Suspected UTI H/O pelvic floor surgery recently --CT ABD:No acute diverticulitis. No small bowel obstruction. No free intraperitoneal air. Normal appendix. Wall thickening of the urinary bladder, correlate for mild UTI. Urine culture pending Tolerated Rocephin while in ED Started on Omnicef empirically Advised to follow-up with PCP for urine culture results and adjustment of medications as needed Fibromyalgia Prediabetes, HbA1C:5.7 November 13 Continue home medications Code Status Full code Admission and Anticipated Discharge Date Admission Date: May 17, 2023 Subjective Patient is seen and examined at bedside Chest pain resolved Reports ongoing acid reflux symptoms Reports chronic intermittent dysphagia Had cardiac stress test earlier today Denies any dyspnea, dizziness, nausea, vomiting, abdominal pain, dysuria Discussed with patient's family at bedside Eager to get discharged Plan to be discharged home today Review of Systems Review of Systems: All systems reviewed & are unremarkable except as noted in Subjective Physical Exam Physical Exam: Physical Exam: Vitals signs as noted above General Appearance:Moderately built and nourished, no apparent distress Head: normocephalic, Atraumatic Eyes: normal inspection, EOMI Neck: supple, Trachea midline Respiratory/Chest: Normal breath sounds, CTA, No accessory muscle use Cardiovascular: S1, S2, No murmur Abdomen/GI:Soft, Non tender, Bowel sounds present Extremities/Musculoskeletal:normal inspection, no edema Neurologic/Psych:AAOX3, grossly no focal neurological deficits Skin: normal color, warm Results & Data Results & Data Vital Signs (Past 12 Hours) Vital Signs Pulse Pulse Resp BP BP Pulse Ox O2 Del Method 05/17/23 12:09 70 16 92/73 L 97 Room Air 05/17/23 07:00 58 L 13 108/71 97 Room Air 05/17/23 06:19 59 L 16 97 05/17/23 06:19 95/53 L 05/17/23 06:10 63 11 L 05/17/23 06:00 59 L 15 05/17/23 05:50 66 13 05/17/23 05:40 63 12 05/17/23 05:30 62 18 05/17/23 05:28 57 L 13 05/17/23 04:50 65 15 97 05/17/23 04:40 76 15 98 05/17/23 04:30 80 21 98 05/17/23 04:20 56 L 13 97 05/17/23 04:10 66 21 97 05/17/23 04:08 70 13 97 05/17/23 04:08 99/60 L 05/17/23 04:00 56 L 10 L 98 05/17/23 04:00 80/55 L 05/17/23 03:50 65 14 99 05/17/23 03:40 61 15 96 05/17/23 03:31 104/79 05/17/23 03:31 62 13 98 05/17/23 03:30 80 15 96 05/17/23 03:20 64 12 95 05/17/23 03:10 61 12 95 05/17/23 03:01 57 L 14 96 05/17/23 03:01 99/83 L 05/17/23 03:00 64 16 97 05/17/23 02:50 60 13 96 05/17/23 02:40 63 13 96 05/17/23 02:30 57 L 17 99 05/17/23 02:30 95/55 L 05/17/23 02:24 100/60 05/17/23 06:19 60 16 95/53 L 96 Room Air 05/17/23 06:11 61 05/17/23 04:08 63 18 99/60 L 97 Room Air 05/17/23 03:05 61 16 99/83 L 95 Room Air 05/17/23 02:13 60 05/17/23 02:00 61 12 85/54 L 96 Room Air Laboratory Results Short CBC 05/16/23 Range/Units 19:20 WBC 5.97 (4.8-10.8) K/ul Hgb 13.8 (12.0-16.0) g/dl Hct 41.3 (37.0-47.0) % Plt Count 235 (130-400) K/uL BMP 10/24/23 19:20 Sodium 137 Potassium 4.3 Chloride 104 Carbon Dioxide 30 BUN 13 Creatinine 0.89 Glucose 101 H Calcium 9.7 Cardiac Enzymes 05/16/23 Range/Units 19:20 Total Creatine Kinase 69 (26-192) U/L Liver Function 05/16/23 Range/Units 19:20 Total Bilirubin 0.3 (0.2-1.0) mg/dl AST 17 (13-39) U/L ALT 13 (7-52) U/L Alkaline Phosphatase 79 (34-104) U/L Albumin 4.4 (3.4-5.0) gm/dl Urine 05/17/23 Range/Units 00:35 Urine Color Yellow Urine Appearance Clear (Clear) Urine pH 7.5 (4.5-7.5) Ur Specific [place] > 1.045 H (1.000-1.030) Urine Protein Negative (Negative) Urine Glucose (UA) Negative (Negative)
--- NOTE | 2023-05-17 14:39 | Discharge Summary ---
Date of Service May 17, 2023 Admission HPI Per Admitting Provider History obtained from patient and records. Medical history significant for anxiety, fibromyalgia, prediabetes. 2 months history of substernal discomfort with occasional radiation to the back. Intermittent symptoms. Symptoms not exertional and not related to food as per patient. Usual stress at home. No improvement with daily PPI prescribed by PCP. Outpatient stress test contemplated. Symptoms more intense the last week. Patient also noted increased urinary frequency without fever, chills. No hematuria. At the ER, some improvement after IV Pepcid administration at the ER. IV ceftriaxone administered at the ER for UTI. Patient requesting to stay to have a stress test to make sure her heart is okay. 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 Principal Diagnosis Atypical chest pain Suspected urinary tract infection GERD Discharge Data Allergies Allergy/AdvReac Type Severity Reaction Status Date / Time Penicillins Allergy Rash Verified 05/17/23 00:27 Consultations 05/17/23 00:10 ED Decision to Admit Stat 05/17/23 11:11 Consult Gastroenterology Routine Procedures Performed Laboratory Results WBC 5.97 K/ul (4.8-10.8) 05/16/23 19:20 RBC 4.48 M/uL (4.20-5.40) 05/16/23 19:20 Hgb 13.8 g/dl (12.0-16.0) 05/16/23 19:20 Hct 41.3 % (37.0-47.0) 05/16/23 19:20 MCV 92.2 fL (80.0-100.0) 05/16/23 19:20 MCH 30.8 pg (25.0-34.0) 05/16/23 19:20 MCHC 33.4 g/dL (32.0-36.0) 05/16/23 19:20 RDW Std Deviation 43.3 fL (36.4-46.3) 05/16/23 19:20 RDW Coeff of Yakov 12.9 % (11.5-14.5) 05/16/23 19:20 Plt Count 235 K/uL (130-400) 05/16/23 19:20 MPV 9.8 fL (9.4-12.4) 05/16/23 19:20 Immature Gran % (Auto) 0.2 % 05/16/23 19:20 Neut % (Auto) 40.0 % 05/16/23 19:20 Lymph % (Auto) 46.1 % 05/16/23 19:20 [place] % (Auto) 9.5 % 05/16/23 19:20 Eos % (Auto) 3.5 % 05/16/23 19:20 Baso % (Auto) 0.7 % 05/16/23 19:20 Neut # (Auto) 2.39 K/uL (1.40-6.50) 05/16/23 19:20 Lymph # (Auto) 2.75 K/uL (1.20-3.40) 05/16/23 19:20 [place] # (Auto) 0.57 K/uL (0.11-0.59) 05/16/23 19:20 Eos # (Auto) 0.21 K/uL (0.00-0.50) 05/16/23 19:20 Baso # (Auto) 0.04 K/uL (0.00-0.20) 05/16/23 19:20 Immature Gran # (Auto) 0.01 K/uL (0.01-0.20) 05/16/23 19:20 APTT 26.8 Seconds (21.0-31.0) 05/16/23 19:20 PTT Ratio 1.0 05/16/23 19:20 Sodium 137 mmol/L (136-145) 05/16/23 19:20 Potassium 4.3 mmol/L (3.5-5.1) 05/16/23 19:20 Chloride 104 mmol/L (98-107) 05/16/23 19:20 Carbon Dioxide 30 mmol/L (21-32) 05/16/23 19:20 Anion Gap 3 (3-11) 05/16/23 19:20 BUN 13 mg/dl (6-23) 05/16/23 19:20 Creatinine 0.89 mg/dl (0.6-1.2) 05/16/23 19:20 Est Cr Clr Drug Dosing Not Reportable 05/16/23 19:20 Est GFR ( Amer) 84.6 ml/min 05/16/23 19:20 Est GFR (Non-Af Amer) 73.0 ml/min 05/16/23 19:20 BUN/Creatinine Ratio 14.6 (10-20) 05/16/23 19:20 Glucose 101 mg/dl (70-99(Fasting)) H 05/16/23 19:20 Calcium 9.7 mg/dl (8.6-10.3) 05/16/23 19:20 Magnesium 2.3 mg/dl (1.7-2.4) 05/17/23 01:00 Total Bilirubin 0.3 mg/dl (0.2-1.0) 05/16/23 19:20 AST 17 U/L (13-39) 05/16/23 19:20 ALT 13 U/L (7-52) 05/16/23 19:20 Alkaline Phosphatase 79 U/L (34-104) 05/16/23 19:20 Total Creatine Kinase 69 U/L (26-192) 05/16/23 19:20 Troponin I High Sens < 2.3 pg/ml (0-14) 05/17/23 01:00 Total Protein 7.4 gm/dl (6.0-8.3) 05/16/23 19:20 Albumin 4.4 gm/dl (3.4-5.0) 05/16/23 19:20 Globulin 3.0 gm/dl (2.5-4.0) 05/16/23 19:20 Albumin/Globulin Ratio 1.5 (0.9-2) 05/16/23 19:20 Lipase 35 U/L (11-82) 05/16/23 19:20 TSH 3.667 uIu/ml (0.300-4.500) 05/16/23 19:20 Urine Color Yellow 05/17/23 00:35 Urine Appearance Clear (Clear) 05/17/23 00:35 Urine pH 7.5 (4.5-7.5) 05/17/23 00:35 Ur Specific [place] > 1.045 (1.000-1.030) H 05/17/23 00:35 Urine Protein Negative (Negative) 05/17/23 00:35 Urine Glucose (UA) Negative (Negative) 05/17/23 00:35 Urine Ketones Negative (Negative) 05/17/23 00:35 Urine Blood Negative (Negative) 05/17/23 00:35 Urine Nitrite Negative (Negative) 05/17/23 00:35 Urine Bilirubin Negative (Negative) 05/17/23 00:35 Urine Urobilinogen Negative (Negative) 05/17/23 00:35 Ur Leukocyte Esterase 2+ (Negative) H 05/17/23 00:35 Urine WBC (Auto) >30 /hpf (0-5) H 05/17/23 00:35 Urine RBC (Auto) 0-4 /hpf (0-4) 05/17/23 00:35 U Hyaline Cast (Auto) 1-5 /lpf (0-5) 05/17/23 00:35 U Epithel Cells (Auto) 0-5 /lpf (0-5) 05/17/23 00:35 Urine Bacteria (Auto) 1+ (Negative) H 05/17/23 00:35 Lyme Disease IgG Ab Negative (Negative) 05/16/23 19:20 Lyme Disease IgM Ab Negative (Negative) 05/16/23 19:20 Impressions Chest X-Ray 05/16/23 19:12 XR chest 1V portable CLINICAL HISTORY: Chest pain, nonspecific TECHNIQUE: Single frontal radiograph of the chest was obtained. Comparison: None available at the time of this dictation. FINDINGS: No lines and tubes are seen. The cardiomediastinal silhouette is normal. The lungs are clear. No evidence of pleural effusion or pneumothorax. IMPRESSION: No acute chest disease. ACT 112: Negative or not required by law. Electronically signed by: Alexy Mas M.D. 05/17/2023 8:07 AM Abdomen/Pelvis CT 05/16/23 22:42 Exam(s): CT ABDOMEN + PELVIS With Contrast IV Amt: 109 ML OPTIRAY 320 EXAM: CT Abdomen and Pelvis With Intravenous Contrast CLINICAL HISTORY: Reason for exam: mid abd pain. TECHNIQUE: Axial computed tomography images of the abdomen and pelvis with intravenous contrast. CTDI is 13.28 mGy and DLP is 641.5 mGy-cm. Automated exposure control was utilized for the study. A dose lowering technique was utilized adhering to the principles of ALARA. CONTRAST: Patient received 109 ML OPTIRAY 320 of IV contrast COMPARISON: No relevant prior studies available. FINDINGS: Lung bases: Unremarkable. No mass. No consolidation. ABDOMEN: Liver: Unremarkable. No mass. Gallbladder and bile ducts: Unremarkable. No calcified stones. No ductal dilation. Pancreas: Unremarkable. No mass. No ductal dilation. Spleen: Unremarkable. No splenomegaly. Adrenals: Unremarkable. No mass. Kidneys and ureters: Unremarkable. No solid mass. No hydronephrosis. Stomach and bowel: Unremarkable. No acute diverticulitis. No small bowel obstruction. No free intraperitoneal air. PELVIS: Appendix: Normal appendix. Bladder: Wall thickening of the urinary bladder, correlate for mild UTI. Reproductive: Unremarkable as visualized. ABDOMEN and PELVIS: Intraperitoneal space: Unremarkable. No free air. No significant fluid collection. Bones/joints: No acute fracture. No dislocation. Soft tissues: Unremarkable. Vasculature: Unremarkable. No abdominal aortic aneurysm. Lymph nodes: Unremarkable. No enlarged lymph nodes. IMPRESSION: 1. No acute diverticulitis. No small bowel obstruction. No free intraperitoneal air. 2. Normal appendix. 3. Wall thickening of the urinary bladder, correlate for mild UTI. Electronically signed by: Rodriguez Gonzalez MD 05/17/23 00:00 AM Chest CTA 05/16/23 22:42 Exam(s): CTA CHEST IV Amt: 109 ML OPTIRAY 320 EXAM: CT Angiography Chest With Intravenous Contrast CLINICAL HISTORY: Reason for exam: PE. TECHNIQUE: Axial computed tomographic angiography images of the chest with intravenous contrast. CTDI is 13.04 mGy and DLP is 388.56 mGy-cm. Automated exposure control was utilized for the study. A dose lowering technique was utilized adhering to the principles of ALARA. MIP reconstructed images were created and reviewed. COMPARISON: No relevant prior studies available. FINDINGS: Pulmonary arteries: Unremarkable. No pulmonary embolism. Aorta: No acute findings. No thoracic aortic aneurysm. Lungs: Unremarkable. No mass. No consolidation. Pleural space: Unremarkable. No significant effusion. No pneumothorax. Heart: Unremarkable. No cardiomegaly. No significant pericardial effusion. No evidence of RV dysfunction. Bones/joints: No acute fracture. No dislocation. Soft tissues: Unremarkable. Lymph nodes: Unremarkable. No enlarged lymph nodes. IMPRESSION: Normal chest CTA. No pulmonary embolism. Electronically signed by: Rodriguez Gonzalez MD 05/16/23 23:59 PM Ordered Studies 05/16/23 22:42 CT Abd and Pelvis [CT abd pelvis IV con only] Stat CT angio chest PE protocol Stat Hospital Course (1) Atypical chest pain: Atypical chest pain Likely due to GERD DD: Esophagitis, esophageal dysmotility/stricture --CTA:Normal chest CTA. No pulmonary embolism. -- Exercise stress: Negative for ischemia. Mild tricuspid regurgitation present. -- EKG showed no signs of acute ischemia Cardiac enzymes negative Appreciate GI input Started on Protonix 40 mg twice a day Needs outpatient endoscopy GI soft diet for now Needs follow-up with GI upon discharge Abnormal urinalysis Suspected UTI H/O pelvic floor surgery recently --CT ABD:No acute diverticulitis. No small bowel obstruction. No free intraperitoneal air. Normal appendix. Wall thickening of the urinary bladder, correlate for mild UTI. Urine culture pending Tolerated Rocephin while in ED Started on Omnicef empirically Advised to follow-up with PCP for urine culture results and adjustment of medications as needed Fibromyalgia Prediabetes, HbA1C:5.7 November 13 Continue home medications Code Status Full code Total Time Total Time Spent Total Time Spent (In Minutes): 56 minutes Discharge Plan Discharge Items Patient Disposition: Home - Self-Care Reason For Visit: CHEST PAIN Discharge Diagnosis: Atypical chest pain Suspected urinary tract infection GERD Condition on Discharge: Good Activity: Per Instructions section Exercise/Sports: Wait until after follow-up appointment Non-emergency contact: Primary Care Provider and Crm Developer Call non-emergency contact if: you have any medication questions, your symptoms worsen, your pain is concerning for you and you have a fever Follow-up/Referrals: Carlos Olsen MD [Primary Care Provider] - (Date & Time 05/23/2023 11:00 AM Provider Carlos Olsen MD Department General Internal Medicine [facility] ) Che Johnson CRNP [Nurse Practitioner] - (The GI office will contact you for an appointment.) Diet: Low Fiber Addtl Attending Provider Instructions: --Follow-up with your primary care physician Dr. Olsen in 1 week --Follow-up with your vehicle painter Che CHARLES as outpatient for possible Endoscopy --Consider following with your urologist if your urinary symptoms persist. -- You are empirically started on (Cefdinir) Omnicef for possible urinary tract infection. Your urine culture is pending currently at the time of discharge. Follow-up with your physician for results and further adjustment of medications as needed. -- Start taking Protonix 40 mg twice a day as recommended by your vehicle painter. Avoid alcohol and [id number] pain medications as recommended. Seek immediate medical attention if your symptoms reoccur or worsen Please take all medications as instructed on discharge list below. Please call if you have any questions or problems. You can reach a [facility] hospitalist on duty at [facility] 24 hours a day by calling [phone] Pending Studies at Discharge: Yes Studies:: Urine Culture Stand-Alone Forms: My [facility], Smoking Cessation Medications and DC Order Prescriptions: New pantoprazole 40 mg Tablet,Delayed Release (Dr/Ec) 40 mg PO BID Qty: 60 0RF cefdinir 300 mg capsule 300 mg PO BID Qty: 8 0RF Continued clonazepam [Klonopin] 0.5 mg Tablet 0.5 mg PO HS PRN (Reason: Anxiety) Rx Instructions: administer 30 minutes before bedtime sumatriptan succinate 1 dose PO UD PRN (Reason: migraines) Patient Comments: pt unsure of dose Discharge Orders: Discharge Order (Routine); Ordered 05/17/23 Ordered By: oH Suarez Admission Data Admit Date/Time: 05/17/23 04:50 Attending Provider: Ho Suarez Admit Provider: Ever Mendez Primary Care Provider: Carlos Olsen Other Providers: Ever Mendez ; Nima Tipton ; Alphonso Spangler ; Aparna Herrmann ; Sendy Cole ; Janay Priest ; Nhung Ashley ; Richie Larsen ; Bentley Lauren ; Colleen Ordoñez ; Adeel Damon ; Valerie Triplett S ; Vinnie Sotelo ; Radha Fatima ; Cintia Menjivar ; Che Johnson ; Shanti Mcpherson ; Elizabeth Gabriel ; Jayant Miguel ; Garret Vásquez ; Adeline Corcoran ; Patricia Rajput Jr Other Interventions: Discharge Summary Assessment (RN) Last Done: 05/17/23 14:19
[2023-05-18] MEDS ORDERED: cephALEXin 500 MG CAP PO SCH (09:00)
--- NOTE | 2023-05-18 22:21 | Electrocardiogram Report ---
Test Reason : Blood Pressure : / mmHG Vent. Rate : 075 BPM Atrial Rate : 075 BPM P-R Int : 150 ms QRS Dur : 070 ms QT Int : 386 ms P-R-T Axes : 081 082 076 degrees QTc Int : 431 ms Normal sinus rhythm Normal ECG When compared with ECG of 04-NOV-2022 11:58, No significant change was found Confirmed by Kiko Olson ([id number]) on 05/18/2023 10:20:49 PM Referred By: REFERRED SELF Confirmed By:Kiko Olson
== END 2023-05-17 14:30 | disposition home or self-care (01) ==
LOC: ED 19:00 → EDINP 19:00 → SUATTDRO 05-17 04:50 → EDINP 05-17 07:50